=== PATIENT | female | born 1970 | race Caucasian/White ===

== ENCOUNTER 2019-07-30 16:09 | Emergency (ER) | payer SELFPAY ==
[2019-07-30] VITALS (20 sets, daily range): BP systolic 113–135; BP diastolic 64–90; PULSE 62–97; RESP 14–22; TEMP 36.7; O2SAT 93–100; BMI 35.4
--- NOTE | 2019-07-30 16:05 | ED_ITS ---
Entered by Shelby Siegel, acting as scribe for Toni Vann DO HPI - SOB/Dyspnea General: Chief Complaint: Shortness of Breath/Dyspnea Stated Complaint: choking on grape Time Seen by Provider: 07/30/19 16:05 Source: patient and EMS Mode of arrival: EMS Limitations: no limitations History of Present Illness: HPI Narrative: 48 yo Female presents to ED with c omplaint of choking on a grape. Pt was eating grapes and breathed in, the grape became lodging in her throat. Per EMS, they tried to get a blade in to get past the grape but were unable. During transfer process, patient coughed up and then swallowed the grape. Cancelled transfer process. MD elicited complaint: shortness of breath Onset (ago): minute(s) (Just prior to arrival) Context: choking/aspiration (grape in airway) Timing: constant Severity: severe Exacerbating factors: nothing Relieving factors: nothing Associated symptoms: Reports nausea and vomiting; Deny abdominal pain, chest congestion, chest pain, cough, extremity pain, fever(s), palpitations, polydipsia or polyuria Related Data: Home oxygen amount: none Review of Systems General: Reports: 10 or more systems reviewed and unremarkable except in HPI and below Const: Denies: fever, chills or body aches Eyes: Denies: change in vision, blurry vision or blind spots ENMT: Reports: other (esophageal foreign body); Denies: throat pain, painful swallowing, hoarseness or mouth pain Card: Denies: chest pain, palpitations, irregular heart rhythm, edema or swell ing of feet/ankles Resp: Reports: shortness of breath; Denies: productive cough, non-productive cough or chest congestion GI: Reports: nausea and vomiting; Denies: abdominal pain : Denies: flank pain, difficulty urinating, painful urination, urinary frequency or urinary urgency Musc: Denies: neck pain, back pain, extremity pain, extremity swelling, joint pain or joint swelling Skin/Breast: Denies: rash, itching or redness Neuro: Denies: headache, numbness in extremities or weakness in extremities Endo: Denies: excessive urination, excessive thirst or tired all the time Jignesh/Lymph: Denies: easy bruising or easy bleeding PFSH ED PFSH: Statuses (acute, chronic, etc) shown below reflect problem list status as previously entered and may not be historically accurate Medical History (Updated 07/30/19 @ 18:00 by Toni Vann DO) Chronic back pain (Acute) Hepatitis (Acute) Sciatica (Acute) Substance abuse (Acute) UTI (urinary tract infection) (Acute) Surgical History (Updated 07/30/19 @ 16:17 by Shelby Siegel) History of (Acute) History of cholecystectomy (Acute) History of laparoscopy (Acute) History of laparotomy (Acute) Social History Smoking and tobacco status: current every day smoker Physical Exam Const: COMMON NORMALS: no apparent distress, average body habitus, oriented x3, no limitations, healthy appearing, alert and well nourished HENMT: COMMON NORMALS: normocephalic, head/scalp atraumatic, hearing grossly normal bilaterally, external ears normal, EAC's normal, TM's normal bilaterally, external nose normal, nasal mucous membranes and turbinates normal, moist oral mucous membranes, oropharynx normal, dentition normal and gingiva normal HEAD & SCALP: normocephalic and atraumatic NOSE: external nose normal and nasal mucous membranes and turbinates normal EXTERNAL EAR: Yes external ears normal EXTERNAL AUDITORY CANAL: EAC's normal TYMPANIC MEMBRANE: TM's normal bilaterally Eye: COMMON NORMALS: PERRL, EOMs intact bilaterally, conjunctivae normal, no scleral icterus, no papilledema, normal visual osei by confrontation and fundi normal bilaterally CONJUNCTIVA: Yes conjunctivae normal PUPIL: Yes PERRL DIRECT OPHTHALMOSCOPY: Yes no papilledema and Yes fundi normal bilaterally Neck/C-Spine: COMMON NORMALS: full ROM, no lymphadenopathy, supple, no meningeal signs, no JVD, thyroid normal and no carotid bruits THYROID: thyroid normal Chest: COMMONS NORMALS: inspection of chest normal and palpation of chest normal Resp: COMMON NORMALS: normal respiratory effort, no retractions, no use of accessory muscles, clear to auscultation bilaterally and percussion normal AUSCULTATION: clear to auscultation bilaterally PERCUSSION: percussion normal Cardio: COMMON NORMALS: no JVD, regular rate, regular rhythm, S1 normal heart sound, S2 normal heart sound, no gallops, no clicks, no murmurs, no rub and peripheral pulses 2+ throughout RATE: regular rate RHYTHM: regular rhythm HEART SOUNDS: S1 normal and S2 normal PERIPHERAL PULSES: pulses 2+ throughout GI: COMMON NORMALS: normal to inspection, nondistended, normoactive bowel sounds, soft to palpation, non-tender, no hepatosplenomegaly, no masses and no bruits PALPATION: Yes soft and Yes no hepatosplenomegaly : COMMON NORMALS: Yes no CVA tenderness and Yes external appearance normal BLADDER/KIDNEY EXAM: Yes no CVA tenderness Back/Pelvis: COMMON NORMALS: no CVA tenderness, thoracic and lumbar spine normal to inspection, no thoracic nor lumbar tenderness, thoraco-lumbar ROM normal and straight leg raise negative bilaterally Extremity: COMMON NORMALS: normal to inspection, full ROM, normal capillary refill, no joint enlargement, no clubbing, cyanosis or edema, no calf tenderness and no pedal edema Neuro: COMMON NORMALS: oriented x3 SENSORIUM/ORIENTATION: Yes alert MENINGEAL SIGNS: Yes no meningeal signs Skin: COMMON NORMALS: no rashes or lesions noted, no wounds, skin turgor normal, no jaundice, no petechiae and no mottling GENERAL SKIN EXAM: no rashes or lesions noted and turgor normal Course Vital Signs: Vital signs: Vital Signs Temperature 98.0 F 07/30/19 15:59 Pulse Rate 67 07/30/19 17:40 Respiratory Rate 18 07/30/19 17:40 Blood Pressure 117/75 07/30/19 17:40 Pulse Oximetry 95 07/30/19 17:20 MDM - SOB/Dyspnea Lab Data: Labs: Lab Results 07/30/19 07/30/19 Range/Units 16:25 16:25 WBC 7.9 (4.0-10.0) 10^3/ uL RBC 5.03 (4.1-5.3) 10^6/u L Hgb 14.0 (11.5-15.3) g/dL Hct 41.7 (37.0-47.0) % MCV 82.9 (81-99) fL MCH 27.8 L (28.0-34.0) pg MCHC 33.6 (30.0-36.0) g/dL RDW 12.2 (12.1-15.1) % Plt Count 274 (130-400) 10^3/c mm MPV 9.7 (7.4-10.4) fL Neut % (Auto) 44.6 % Lymph % (Auto) 45.1 % [place] % (Auto) 7.4 % Eos % (Auto) 2.3 % Baso % (Auto) 0.3 % Neut # (Auto) 3.5 (1.8-7.7) 10^3/u L Lymph # (Auto) 3.6 (0.8-4.8) 10^3/u L [place] # (Auto) 0.6 (0.2-0.9) 10^3/u L Eos # (Auto) 0.2 (0.0-0.8) 10^3/u L Baso # (Auto) 0.0 (0.0-0.1) 10^3/u L Nucleated RBC % (a uto) 0 % Nucleated RBCs # 0.0 /100WBC Sodium 138 (136-145) mmol/L Potassium 3.5 (3.5-5.1) mmol/L Chloride 97 L (98-107) mmol/L Carbon Dioxide 30 H (22-29) mmol/L Anion Gap 14.5 (5-19) BUN 12 (6-20) mg/dL Creatinine 0.7 (0.5-0.9) mg/dL GFR Calculation 89.3 L (90-130) mL/min Glucose 110 H (74-109) mg/dL Calcium 10.5 H (8.6-10.0) mg/Dl Total Bilirubin 0.3 (0.15-1.2) mg/dL AST 52 H (0-32) U/L ALT 44 H (0-33) U/L Alkaline Phosphata se 110 H (35-105) IU/L Total Protein 9.0 H (6.6-8.7) g/dL Albumin 4.4 (3.5-5.2) g/dL Globulin 4.6 (1.3-4.6) g/dL Imaging Data^: XR Soft Tissue Neck: Radiologist's impression: [address] [address] XRay Report Signed Patient: Franny Schuster #: [id number] : 1970Acct#:[id number] Age/Sex: 48 / FADM Date: 07/30/19 Loc: ERRoom/Bed: Attending Dr: Ordering Provider/Ordering MD: Toni Vann DO Date of Service: 07/30/19 Procedure(s): XR soft tissue neck [id number] Accession Number(s): [id number] Report Number: [id number] PROCEDURE INFORMATION: Exam: XR Soft Tissue Neck Exam date and time: 07/30/2019 4:12 PM Age: 48 years old Clinical indication: Other: Choking; Additional info: Choking on a grape TECHNIQUE: Imaging protocol: XR of the soft tissues of the neck. COMPARISON: No relevant prior studies available. FINDINGS: Airway: On lateral view, there is non specific dilation of the upper esophagus and airway. No radiopaque foreign body identified. Soft tissues: Prevertebral soft tissues are within normal limits. Bones/joints: Unremarkable for technique. XR/XR soft tissue neck [id number] IMPRESSION: 1. No radiopaque foreign body identified. Dictated By:Adam Zambrano MD Signed By:Adam Zambrano MDSigned Date/Time:07/30/191637 DD/ 1637 CT Chest: Radiologist's impression: [address] [address] [address] Scan Report Signed Patient: Franny Schuster #: [id number] : 1970Acct#:[id number] Age/Sex: 48 / FADM Date: 07/30/19 Loc: ERRoom/Bed: Attending Dr: Ordering Provider/Ordering MD: Toni Vann DO Date of Service: 07/30/19 Procedure(s): CT chest w con* [id number] Accession Number(s): [id number] Report Number: [id number] PROCEDURE INFORMATION: Exam: CT Chest With Contrast Exam date and time: 07/30/2019 4:17 PM Age: 48 years old Clinical indication: Injury or trauma; Injury history: PT choked on grape; Initial encounter; Asphyxiation (suffocation); Additional info: Aspiration TECHNIQUE: Imaging protocol: Computed tomography of the chest with intravenous contrast. Total DLP: 782.94 mGy-cm Radiation optimization: All CT scans at this facility use at least one of these dose optimization techniques: automated exposure control; mA and/or kV adjustment per patient size (includes targeted exams where dose is matched to clinical indication); or iterative reconstruction. Contrast material: OMNIPAQUE 300; Contrast volume: 50 ml; Contrast route: IV; COMPARISON: CR Chest 1 [place] [id number] 09/08/2012 10:31 PM FINDINGS: Lungs: Central airways are clear. No evidence of radiopaque foreign body or endobronchial lesion. Pleural space: No pneumothorax. No pleural effusion. Heart: No cardiomegaly. No pericardial effusion. Mediastinum: There is a small hiatal hernia. Pulmonary arteries: The main pulmonary artery measures up to 3.4 cm on this nongated study. Aorta: No aortic aneurysm. Lymph nodes: No enlarged lymph nodes. Gallbladder and bile ducts: The gallbladder surgically absent. Bones/joints: There are mild multilevel degenerative changes of the spine. There are no acute osseous findings. Soft tissues: Unremarkable. CT/CT chest w con* [id number] IMPRESSION: 1. The central airways are clear. There is no evidence of a radiopaque foreign body or endobronchial lesion. 2. The main pulmonary artery measures up to 3.4 cm which can be associated with pulmonary arterial hypertension. Otherwise, no acute intrathoracic process identified. Radiation Dose CTDIVOL = (mGy): DLP = 782.94 (mGy-cm) Dictated By:Adam Zambrano MD Signed By:Adam Zambrano MDSigned Date/Time:07/30/191730 DD/ 173 CT Neck: Radiologist's impression: [address] [address] [address] Scan Report Signed Patient: Franny Schuster #: [id number] : 1970Acct#:[id number] Age/Sex: 48 / FADM Date: 07/30/19 Loc: ERRoom/Bed: Attending Dr: Ordering Provider/Ordering MD: Toni Vann DO Date of Service: 07/30/19 Procedure(s): CT neck w con* [id number] Accession Number(s): [id number] Report Number: [id number] PROCEDURE INFORMATION: Exam: CT Neck With Contrast Exam date and time: 07/30/2019 4:17 PM Age: 48 years old Clinical indication: Injury or trauma; Injury history: PT choked on grape; Initial encounter; Asphyxiation (suffocation); Additional info: Aspiration TECHNIQUE: Imaging protocol: Computed tomography images of the neck with intravenous contrast. Total DLP: 832.7 mGy-cm Radiation optimization: All CT scans at this facility use at least one of these dose optimization techniques: automated exposure control; mA and/or kV adjustment per patient size (includes targeted exams where dose is matched to clinical indication); or iterative reconstruction. Contrast material: OMNIPAQUE 300; Contrast volume: 50 ml; Contrast route: IV; COMPARISON: CR XR soft tissue neck [id number] 07/30/2019 3:55 PM FINDINGS: Nasopharynx: Unremarkable. Oropharynx: A few small nonspecific tonsillar calcifications are noted. No significant tonsillar enlargement. Hypopharynx: Unremarkable Larynx: Normal epiglottis. Retropharyngeal space: Unremarkable. Submandibular/Parotid glands: Glands are normal in size. Thyroid: There are a few subcentimeter hypodensities within the thyroid gland. Lymph nodes: No lymphadenopathy. Trachea: The visualized trachea is patent and without evidence of filling defect. Esophagus: There is no evidence of a radiopaque foreign body within the visualized esophagus. Lungs: The visualized lung apices are grossly clear. Bones/joints: There are mild multilevel degenerative changes of the spine, greatest at the C6-C7 level. There are no acute osseous findings. Soft tissues: No significant soft tissue swelling. CT/CT neck w con* [id number] IMPRESSION: 1. No radiopaque foreign body identified. The visualized trachea is patent and without evidence of filling defect. 2. Few subcentimeter hypodensities within the thyroid. No follow-up is recommended. COMMENT: In patients aged 35 years and older with an incidental thyroid nodule equal to or greater than 1.[address], MRI or extrathyroidal US, further evaluation with dedicated thyroid US is recommended for patients with normal life expectancy and without comorbidities. For smaller nodules without suspicious features, no further evaluation or follow up is recommended. Radiation Dose CTDIVOL = (mGy): DLP = 832.7 (mGy-cm) Dictated By:Adam Zambrano MD Signed By:Adam Zambrano MDSigned Date/Time:07/30/191736 DD/ 35 Discharge Plan Discharge Patient Disposition: Home, Self-Care Clinical Impression: Choking episode Condition: Stable Discharge Orders: Discharge Order (Routine); Ordered 07/30/19 Ordered By: Toni Vann Referrals: Angel La MD [Primary Care Provider] - Discharge Diet: Usual diet Discharge Activity: Resume usual activity Interventions: ED Discharge Assessment Last Done: 07/30/19 16:10 Coding Level of Care Code ED Narcotics Detective for Chg Fwd Exam Problem Focused The documentation recorded by the Christal posey Carmen, accurately reflects the service I personally performed and the decisions made by Soo ga Donald P, Jul 30, 2019 16:09
--- NOTE | 2019-07-30 16:08 | XRR_ITS ---
PROCEDURE INFORMATION: Exam: XR Soft Tissue Neck Exam date and time: 07/30/2019 4:12 PM Age: 48 years old Clinical indication: Other: Choking; Additional info: Choking on a grape TECHNIQUE: Imaging protocol: XR of the soft tissues of the neck. COMPARISON: No relevant prior studies available. FINDINGS: Airway: On lateral view, there is non specific dilation of the upper esophagus and airway. No radiopaque foreign body identified. Soft tissues: Prevertebral soft tissues are within normal limits. Bones/joints: Unremarkable for technique. XR/XR soft tissue neck [id number] IMPRESSION: 1. No radiopaque foreign body identified.
[2019-07-30] MEDS: LORazepam 2 mg/mL INJ 1 mL 0.5 MG IVP (16:11)
--- NOTE | 2019-07-30 16:15 | CTR_ITS ---
PROCEDURE INFORMATION: Exam: CT Neck With Contrast Exam date and time: 07/30/2019 4:17 PM Age: 48 years old Clinical indication: Injury or trauma; Injury history: PT choked on grape; Initial encounter; Asphyxiation (suffocation); Additional info: Aspiration TECHNIQUE: Imaging protocol: Computed tomography images of the neck with intravenous contrast. Total DLP: 832.7 mGy-cm Radiation optimization: All CT scans at this facility use at least one of these dose optimization techniques: automated exposure control; mA and/or kV adjustment per patient size (includes targeted exams where dose is matched to clinical indication); or iterative reconstruction. Contrast material: OMNIPAQUE 300; Contrast volume: 50 ml; Contrast route: IV; COMPARISON: CR XR soft tissue neck [id number] 07/30/2019 3:55 PM FINDINGS: Nasopharynx: Unremarkable. Oropharynx: A few small nonspecific tonsillar calcifications are noted. No significant tonsillar enlargement. Hypopharynx: Unremarkable Larynx: Normal epiglottis. Retropharyngeal space: Unremarkable. Submandibular/Parotid glands: Glands are normal in size. Thyroid: There are a few subcentimeter hypodensities within the thyroid gland. Lymph nodes: No lymphadenopathy. Trachea: The visualized trachea is patent and without evidence of filling defect. Esophagus: There is no evidence of a radiopaque foreign body within the visualized esophagus. Lungs: The visualized lung apices are grossly clear. Bones/joints: There are mild multilevel degenerative changes of the spine, greatest at the C6-C7 level. There are no acute osseous findings. Soft tissues: No significant soft tissue swelling. CT/CT neck w con* [id number] IMPRESSION: 1. No radiopaque foreign body identified. The visualized trachea is patent and without evidence of filling defect. 2. Few subcentimeter hypodensities within the thyroid. No follow-up is recommended. COMMENT: In patients aged 35 years and older with an incidental thyroid nodule equal to or greater than 1.[address], MRI or extrathyroidal US, further evaluation with dedicated thyroid US is recommended for patients with normal life expectancy and without comorbidities. For smaller nodules without suspicious features, no further evaluation or follow up is recommended. Radiation Dose CTDIVOL = (mGy): DLP = 832.7 (mGy-cm)
--- NOTE | 2019-07-30 16:15 | CTR_ITS ---
PROCEDURE INFORMATION: Exam: CT Chest With Contrast Exam date and time: 07/30/2019 4:17 PM Age: 48 years old Clinical indication: Injury or trauma; Injury history: PT choked on grape; Initial encounter; Asphyxiation (suffocation); Additional info: Aspiration TECHNIQUE: Imaging protocol: Computed tomography of the chest with intravenous contrast. Total DLP: 782.94 mGy-cm Radiation optimization: All CT scans at this facility use at least one of these dose optimization techniques: automated exposure control; mA and/or kV adjustment per patient size (includes targeted exams where dose is matched to clinical indication); or iterative reconstruction. Contrast material: OMNIPAQUE 300; Contrast volume: 50 ml; Contrast route: IV; COMPARISON: CR Chest 1 [place] [id number] 09/08/2012 10:31 PM FINDINGS: Lungs: Central airways are clear. No evidence of radiopaque foreign body or endobronchial lesion. Pleural space: No pneumothorax. No pleural effusion. Heart: No cardiomegaly. No pericardial effusion. Mediastinum: There is a small hiatal hernia. Pulmonary arteries: The main pulmonary artery measures up to 3.4 cm on this nongated study. Aorta: No aortic aneurysm. Lymph nodes: No enlarged lymph nodes. Gallbladder and bile ducts: The gallbladder surgically absent. Bones/joints: There are mild multilevel degenerative changes of the spine. There are no acute osseous findings. Soft tissues: Unremarkable. CT/CT chest w con* [id number] IMPRESSION: 1. The central airways are clear. There is no evidence of a radiopaque foreign body or endobronchial lesion. 2. The main pulmonary artery measures up to 3.4 cm which can be associated with pulmonary arterial hypertension. Otherwise, no acute intrathoracic process identified. Radiation Dose CTDIVOL = (mGy): DLP = 782.94 (mGy-cm)
--- NOTE | 2019-07-30 16:21 | PC.NURSE ---
Pt coughed up grape at bedside. [facility] notified. Lab at bedside to draw blood
[2019-07-30] MEDS: iohexol 300 mg/mL 100 mL Btl IV (16:35)
--- NOTE | 2019-07-30 16:40 | PC.NURSE ---
Pt to CT
[2019-07-30 16:43] LABS: Basophils % 0.3 %; Eosinophils # 0.2 10^3/uL (0.0-0.8); Eosinophils % 2.3 %; Hematocrit 41.7 % (37.0-47.0); Lymphocytes # 3.6 10^3/uL (0.8-4.8); Lymphocytes % 45.1 %; Mean Corpuscular HGB Conc 33.6 g/dL (30.0-36.0); Mean Corpuscular Hemoglobin 27.8 pg (28.0-34.0); Mean Corpuscular Volume 82.9 fL (81-99); Mean Platelet Volume 9.7 fL (7.4-10.4); Monocytes # 0.6 10^3/uL (0.2-0.9); Monocytes % 7.4 %; Neutrophils # 3.5 10^3/uL (1.8-7.7); Neutrophils % 44.6 %; Nucleated Red Blood Cells % 0 %; Platelet Count 274 10^3/cmm (130-400); Red Blood Count 5.03 10^6/uL (4.1-5.3); Red Cell Distribution Width 12.2 % (12.1-15.1); White Blood Count 7.9 10^3/uL (4.0-10.0)
--- NOTE | 2019-07-30 16:58 | PC.NURSE ---
Pt returned from CT
[2019-07-30 17:05] LABS: Alanine Aminotransferase 44 U/L (0-33); Albumin Level 4.4 g/dL (3.5-5.2); Alkaline Phosphatase 110 IU/L (35-105); Anion Gap 14.5 (5-19); Aspartate Amino Transferase 52 U/L (0-32); Blood Urea Nitrogen 12 mg/dL (6-20); Calcium 10.5 mg/Dl (8.6-10.0); Carbon Dioxide 30 mmol/L (22-29); Chloride 97 mmol/L (98-107); Globulin 4.6 g/dL (1.3-4.6); Glomerular Filtration Rate 89.3 mL/min (90-130); Glucose 110 mg/dL (74-109); Potassium 3.5 mmol/L (3.5-5.1); Sodium 138 mmol/L (136-145); Total Bilirubin 0.3 mg/dL (0.15-1.2)
== END 2019-07-30 18:12 | disposition home or self-care (01) ==
PROVIDERS: Emergency Provider Family Medicine; PCP Family Medicine
DX: R09.89 Other specified symptoms and signs involving the circulatory and respiratory systems (principal); F17.210 Nicotine dependence, cigarettes, uncomplicated
CPT/HCPCS: 36415; 70360; 70491; 71260; 80053; 85025; 96374; 99282; J2060; Q9967

== ENCOUNTER 2020-05-03 19:08 | Emergency (ER) | payer SELFPAY ==
[2020-05-03 19:22] VITALS: BP 141/83; PULSE 83; RESP 14; TEMP 36.6; O2SAT 100; BMI 32.5
--- NOTE | 2020-05-03 20:15 | CTR_ITS ---
PROCEDURE INFORMATION: Exam: CT Abdomen And Pelvis With Contrast Exam date and time: 05/03/2020 8:25 PM Age: 49 years old Clinical indication: Abdominal pain; Acute; Prior surgery; Surgery date: 6+ months; Surgery type: Hyst gb pelvic FX TECHNIQUE: Imaging protocol: Computed tomography of the abdomen and pelvis with intravenous contrast. Radiation optimization: All CT scans at this facility use at least one of these dose optimization techniques: automated exposure control; mA and/or kV adjustment per patient size (includes targeted exams where dose is matched to clinical indication); or iterative reconstruction. Contrast material: OMNI 300; Contrast volume: 95 ml; Contrast route: INTRAVENOUS (IV); COMPARISON: CT abdomen pelvis wo con [id number] 11/28/2016 9:26 AM RADIATION DOSE METRICS: Total DLP (mGy-cm): 1152.72 FINDINGS: Liver: Normal. No mass. Gallbladder and bile ducts: Cholecystectomy. Pancreas: Normal. No ductal dilation. Spleen: Normal. No splenomegaly. Adrenals: Normal. No mass. Kidneys and ureters: Normal. No hydronephrosis. Stomach and bowel: Constipation. Appendix: No evidence of appendicitis. Intraperitoneal space: Unremarkable. No free air. No significant fluid collection. Vasculature: Unremarkable. No abdominal aortic aneurysm. Lymph nodes: Unremarkable. No enlarged lymph nodes. Urinary bladder: Unremarkable as visualized. Reproductive: Unremarkable as visualized. Bones/joints: Left hip and pelvis surgical hardware. Soft tissues: Unremarkable. CT/CT abdomen pelvis w con* [id number] IMPRESSION: 1. Negative for acute inflammatory process in the abdomen or pelvis 2. Cholecystectomy. 3. Left hip and pelvis surgical hardware. 4. Constipation. Radiation Dose CTDIVOL = (mGy): DLP = 1152.72 (mGy-cm)
--- NOTE | 2020-05-03 20:17 | W.ED.ABDPA2 ---
HPI - Abdominal Pain General: Chief Complaint: Abdominal Pain Stated Complaint: CRAMPS, BLEEDING/HYSTERECTOMY 3 YRS AGO Time Seen by Provider: 05/03/20 20:05 Source: patient Mode of arrival: other Limitations: no limitations History of Present Illness: HPI narrative: 49-year-old female states she been having lower abdominal cramping along with some very slight bleeding that started today. She has had a total hysterectomy in the past. States her bleeding is very minimal and her cramping is a 3 out of 10. She denies any vomiting or diarrhea. Denies any fever. Denies any worsening or improving factors. Associated Symptoms: Denies chills and fever(s) Review of Systems Const: Denies: fever(s), chills, body aches or change in appetite Eyes: Denies: blurry vision or eye discomfort ENMT: Denies: throat pain or dental pain Card: Denies: chest pain Resp: Denies: dyspnea GI: Reports: abdominal pain : Reports: vaginal bleeding Musc: Denies: neck pain or back pain Skin/Breast: Denies: rash Neuro: Denies: headache(s) Psych: Denies: depression Jignesh/Lymph: Denies: easy bruising All/Imm: Denies: urticaria PFSH ED PFSH: Medical History Chronic back pain Hepatitis Sciatica Substance abuse UTI (urinary tract infection) Surgical History History of History of cholecystectomy History of laparoscopy History of laparotomy Social History Smoking and tobacco status: current every day smoker Physical Exam Const: COMMON NORMALS: no acute distress, patient oriented x3 and healthy appearing HENMT: COMMON NORMALS: normocephalic and atraumatic HEAD & SCALP: normocephalic and atraumatic Eye: COMMON NORMALS: Equal, round and reactive pupils present and EOMs intact bilaterally PUPIL: Yes Equal, round and reactive pupils present Neck/C-Spine: COMMON NORMALS: full ROM and supple Chest: COMMONS NORMALS: normal inspection of the chest and normal palpation of entire chest wall Resp: COMMON NORMALS: normal respiratory effort, No retractions, No use of accessory muscles and clear to auscultation bilaterally AUSCULTATION: clear to auscultation bilaterally Cardio: COMMON NORMALS: regular rate, regular rhythm and No murmurs present (Cardio) RATE: regular rate RHYTHM: regular rhythm GI: COMMON NORMALS: Normal to inspection, nondistended, normoactive bowel sounds present, Soft to palpation, non-tender and no masses PALPATION: Yes Soft to palpation Extremity: COMMON NORMALS: normal to inspection and full ROM Neuro: COMMON NORMALS: patient oriented x3, moves all extremities and no focal motor deficits Psych: COMMON NORMALS: mental status grossly normal, Normal thought process present and cooperative THOUGHT PROCESS: Normal thought process present Skin: COMMON NORMALS: no rashes or lesions noted and no wounds GENERAL SKIN EXAM: no rashes or lesions noted Course Vital Signs: Vital signs: Vital Signs Temperature 97.8 F 05/03/20 19:22 Pulse Rate 67 05/03/20 21:00 Respiratory Rate 16 05/03/20 21:00 Blood Pressure 132/73 05/03/20 21:00 Pulse Oximetry 99 05/03/20 21:00 MDM - Abdominal Pain MDM Narrative: Medical decision making narrative: Janey presents here with lower abdominal pain with some vaginal spotting. She does have a urinary tract infection and her CT scan here is negative. She is stable for discharge is to follow-up PCP and return if worsening. She understands agrees to plan. Lab Data: Labs: Lab Results 05/03/20 05/03/20 05/03/20 Range/Units 20:27 20:27 20:45 WBC 9.6 (4.0-10.0) 10^3/ uL RBC 5.46 H (4.1-5.3) 10^6/u L Hgb 15.1 (11.5-15.3) g/dL Hct 45.3 (37.0-47.0) % MCV 83.0 (81-99) fL MCH 27.7 L (28.0-34.0) pg MCHC 33.3 (30.0-36.0) g/dL RDW 12.6 (12.1-15.1) % Plt Count 335 (130-400) 10^3/c mm MPV 10.0 (7.4-10.4) fL Neut % (Auto) 43.6 % Lymph % (Auto) 46.0 % [place] % (Auto) 8.9 % Eos % (Auto) 0.9 % Baso % (Auto) 0.4 % Neut # (Auto) 4.18 (1.8-7.7) 10^3/u L Lymph # (Auto) 4.4 (0.8-4.8) 10^3/u L [place] # (Auto) 0.9 (0.2-0.9) 10^3/u L Eos # (Auto) 0.1 (0.0-0.8) 10^3/u L Baso # (Auto) 0.0 (0.0-0.1) 10^3/u L Nucleated RBC % (a uto) 0 % Nucleated RBCs # 0.0 /100WBC Sodium 135 L (136-145) mmol/L Potassium 4.6 (3.5-5.1) mmol/L Chloride 100 (98-107) mmol/L Carbon Dioxide 23 (22-29) mmol/L Anion Gap 16.6 (5-19) BUN 17 (6-20) mg/dL Creatinine 0.7 (0.5-0.9) mg/dL GFR Calculation 88.9 L (90-130) mL/min Glucose 118 H (65-115) mg/dL Calculated Osmolal ity 283 L (285-295) mOsm/k g Calcium 10.2 (8.5-10.5) mg/dL Total Bilirubin 0.2 (0.15-1.2) mg/dL AST 46 H (0-32) U/L ALT 51 H (0-33) U/L Alkaline Phosphata se 110 H (35-105) IU/L Total Protein 8.9 H (6.6-8.7) g/dL Albumin 4.2 (3.5-5.2) g/dL Globulin 4.7 H (1.3-4.6) g/dL Lipase 27 (13-60) U/L Urine Color Yellow (Yellow) Urine Appearance Cloudy (CLEAR) Urine pH 7.0 (5-7) Ur Specific Gravit y 1.015 (1.005-1.030) Urine Protein Trace (Negative) Urine Glucose (UA) Norm (Normal) Urine Ketones Negative (Negative) Urine Blood 3+ H (Negative) Urine Nitrate Negative (Negative) Urine Bilirubin Neg (Negative) Urine Urobilinogen Norm (Negative) mg/dL Ur Leukocyte Priscilla ase 2+ H (Negative) Urine RBC 15-25 H (0-2) /hpf Urine WBC Too numerous to c nt H (0-5) /hpf Ur Squamous Epith Cells 5-10 H (0-5) /hpf Amorphous Sediment Not Reportable Urine Bacteria 2+ H (NONE) /hpf Imaging Data ^: CT Abd/Pel: Radiologist's impression: [address] [address] [address] Scan Report Signed Patient: Janey Schuster Unit #: [id number] : 1970 Age/Sex: 49 / F ADM Date: 05/03/20 Loc: ER Room/Bed: Attending Dr: Ordering Provider/Ordering MD: Dallin Hernandez MD Date of Service: 05/03/20 Procedure(s): CT abdomen pelvis w con* [id number] Accession Number(s): [id number] Report Number: [id number] PROCEDURE INFORMATION: Exam: CT Abdomen And Pelvis With Contrast Exam date and time: 05/03/2020 8:25 PM Age: 49 years old Clinical indication: Abdominal pain; Acute; Prior surgery; Surgery date: 6+ months; Surgery type: Hyst gb pelvic FX TECHNIQUE: Imaging protocol: Computed tomography of the abdomen and pelvis with intravenous contrast. Radiation optimization: All CT scans at this facility use at least one of these dose optimization techniques: automated exposure control; mA and/or kV adjustment per patient size (includes targeted exams where dose is matched to clinical indication); or iterative reconstruction. Contrast material: OMNI 300; Contrast volume: 95 ml; Contrast route: INTRAVENOUS (IV); COMPARISON: CT abdomen pelvis wo con [id number] 11/28/2016 9:26 AM RADIATION DOSE METRICS: Total DLP (mGy-cm): 1152.72 FINDINGS: Liver: Normal. No mass. Gallbladder and bile ducts: Cholecystectomy. Pancreas: Normal. No ductal dilation. Spleen: Normal. No splenomegaly. Adrenals: Normal. No mass. Kidneys and ureters: Normal. No hydronephrosis. Stomach and bowel: Constipation. Appendix: No evidence of appendicitis. Intraperitoneal space: Unremarkable. No free air. No significant fluid collection. Vasculature: Unremarkable. No abdominal aortic aneurysm. Lymph nodes: Unremarkable. No enlarged lymph nodes. Urinary bladder: Unremarkable as visualized. Reproductive: Unremarkable as visualized. Bones/joints: Left hip and pelvis surgical hardware. Soft tissues: Unremarkable. CT/CT abdomen pelvis w con* [id number] IMPRESSION: 1. Negative for acute inflammatory process in the abdomen or pelvis 2. Cholecystectomy. 3. Left hip and pelvis surgical hardware. 4. Constipation. Discharge Plan Discharge Patient Disposition: Home Clinical Impression: Acute cystitis Qualifiers: Hematuria presence: without hematuria Qualified Code(s): N30.00 - Acute cystitis without hematuria Condition: Stable Prescriptions: New Keflex 500 mg capsule 500 mg PO Q6H 7 Days Qty: 28 RF: 0 Discharge Orders: Discharge Order (Routine); Ordered 05/03/20 Ordered By: Dallin Hernandez Referrals: Angel La MD [Primary Care Provider] - Discharge Diet: Advance as tolerated Discharge Activity: Resume usual activity Patient Instructions: Urinary Tract Infection in Women (ED) Coding Level of Care Code ED Natural Sciences Professor for Chg Fwd Exam Comprehensive
[2020-05-03 20:33] LABS: Basophils % 0.4 %; Eosinophils # 0.1 10^3/uL (0.0-0.8); Eosinophils % 0.9 %; Hematocrit 45.3 % (37.0-47.0); Hemoglobin 15.1 g/dL (11.5-15.3); Lymphocytes # 4.4 10^3/uL (0.8-4.8); Mean Corpuscular HGB Conc 33.3 g/dL (30.0-36.0); Mean Corpuscular Hemoglobin 27.7 pg (28.0-34.0); Monocytes # 0.9 10^3/uL (0.2-0.9); Monocytes % 8.9 %; Neutrophils # 4.18 10^3/uL (1.8-7.7); Neutrophils % 43.6 %; Nucleated Red Blood Cells % 0 %; Platelet Count 335 10^3/cmm (130-400); Red Blood Count 5.46 10^6/uL (4.1-5.3); Red Cell Distribution Width 12.6 % (12.1-15.1); White Blood Count 9.6 10^3/uL (4.0-10.0)
[2020-05-03 20:49] LABS: Alanine Aminotransferase 51 U/L (0-33); Albumin Level 4.2 g/dL (3.5-5.2); Alkaline Phosphatase 110 IU/L (35-105); Aspartate Amino Transferase 46 U/L (0-32); Blood Urea Nitrogen 17 mg/dL (6-20); Calcium 10.2 mg/dL (8.5-10.5); Carbon Dioxide 23 mmol/L (22-29); Chloride 100 mmol/L (98-107); Globulin 4.7 g/dL (1.3-4.6); Glomerular Filtration Rate 88.9 mL/min (90-130); Glucose 118 mg/dL (65-115); Lipase 27 U/L (13-60); Osmolality Calculated 283 mOsm/kg (285-295); Sodium 135 mmol/L (136-145); Total Bilirubin 0.2 mg/dL (0.15-1.2); Total Protein 8.9 g/dL (6.6-8.7)
[2020-05-03 20:51] LABS: Anion Gap 16.6 (5-19); Potassium 4.6 mmol/L (3.5-5.1)
[2020-05-03 21:00] VITALS: BP 132/73; PULSE 67; RESP 16; O2SAT 99
[2020-05-03] MEDS: iohexol 300 mg/mL 100 mL Btl IV (21:10)
[2020-05-03 21:34] LABS: Glucose Urine UA Norm (Normal); Ketones Urine Negative (Negative); Protein Urine Trace (Negative); Specific Gravity, Urine 1.015 (1.005-1.030); Urine Appearance Cloudy (CLEAR); Urine Color Yellow (Yellow)
[2020-05-03 21:35] LABS: Add Urine Culture? Yes; Bacteria Urine 2+ /hpf; Bilirubin Urine Neg (Negative); Blood Urine 3+ (Negative); Leukocyte Esterase Urine 2+ (Negative); Nitrate Urine Negative (Negative); RBC Urine 15-25 /hpf (0-2); Urobilinogen Urine Norm (Negative); WBC Urine TOO NUMEROUS TO CNT /hpf (0-5)
[2020-05-03] MEDS: cefTRIAXone 1,000 MG in sodium chloride 0.9% (plus) 50 ML 100 MG IV (21:46)
[2020-05-03] MEDS: ketorolac 30 mg/mL INJ IVP (21:59)
[2020-05-03 22:01] VITALS: BP 121/78; PULSE 76; RESP 16; O2SAT 99
== END 2020-05-03 22:02 | disposition home or self-care (01) ==
PROVIDERS: Emergency Provider Emergency Medicine; PCP Family Medicine
DX: N30.00 Acute cystitis without hematuria (principal); Z87.440 Personal history of urinary (tract) infections; F17.210 Nicotine dependence, cigarettes, uncomplicated
CPT/HCPCS: 12345; 74177; 80053; 81001; 83690; 85025; 87077; 87086; 87186; 96365; 96375; 99282; 99283; J0696; J1885; Q9967

== ENCOUNTER 2020-08-01 15:42 | Outpatient (CLI) | payer SELFPAY ==
--- NOTE | 2020-08-01 15:54 | XR_ITS ---
WS: [id number] HIP WITH PELVIS LEFT TECHNIQUE: 3 views of the left hip with pelvis CLINICAL INFORMATION: left hip pain COMPARISON: None. FINDINGS: Advanced osteoarthritis left hip with joint space narrowing. Plate and screw fixation along the aceta bulum and left ilium. Intramedullary gricel and screw fixation left femoral neck and shaft. Subchondral cystic changes involving the femoral head. Healed fracture involving the mid femoral shaft. Distal fe moral gricel appears intact. XR/XR hip LT 2-3V wo/w pel* [id number] IMPRESSION: 1. Advanced osteoarthritis left hip with joint space narrowing. 2. Intramedullary gricel and screw fixation left hip extending into the distal fe moral shaft appears intact. Healed fracture mid femoral shaft 3. Plate and screw fixation left acetabulum.
== END 2020-08-01 15:43 | disposition home or self-care (01) ==
LOC: RADWPI 15:47
PROVIDERS: PCP Family Medicine; Visit Provider Family Medicine
DX: M16.12 Unilateral primary osteoarthritis, left hip (principal)
CPT/HCPCS: 73502

== ENCOUNTER → 2021-08-29 00:01 | Outpatient (BNVA) | payer SELFPAY | PROVIDERS: PCP Family Medicine; Visit Provider Orthopaedic Surgery | DX: Z01.812 Encounter for preprocedural laboratory examination (principal); Z20.822 Contact with and (suspected) exposure to COVID-19 | CPT/HCPCS: 87635 ==

== ENCOUNTER 2021-09-02 12:25 | Observation (INO) | payer SELFPAY ==
[2021-08-30 13:37] VITALS: BMI 30.7
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
[2021-09-02] VITALS (27 sets, daily range): BP systolic 97–156; BP diastolic 72–98; PULSE 52–92; RESP 15–22; TEMP 35.7–37.5; O2SAT 90–100; BMI 30.7
[2021-09-02] MEDS: acetaminophen 500 mg Tablet 1000 MG PO ×3 (07:06→19:51)
[2021-09-02] MEDS: gabapentin 300 mg Capsule PO ×2 (07:07→17:41)
[2021-09-02] MEDS: oxyCODONE 20 mg ER (12 HR) Tablet PO (07:08)
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
--- NOTE | 2021-09-02 07:18 | P.ANESUD_ITS ---
Pre-Anesthetic Update Pre-Anesthetic Assessment: Date of Surgery/Procedure: 09/02/21 Preop Mary gnosis: Osteoarthritis Left hip, Painful hardware left femur Proposed Procedure: Operation Date: 09/02/21 07:00 Proposed Procedures p Total Hip Arthroplasty 07405 44712 M16.12(Left) - Jean Rinaldi MD s Hardware Removal Hip(Left) - Jean Rinaldi MD Changes from Pre-Anesthetic Assessment: None Last Intake: Intake Last Liquid Date 09/02/21 Last Liquid Time 01:30 Last Solid Date 09/01/21 Last Solid Time 18:00 Labs Last 48hrs: > 8 hrs Vitals: Temperature 97.2 F L 09/02/21 06:55 Temperature Source Temporal Artery S can 09/02/21 06:55 Pulse Rate 92 09/02/21 06:55 Respiratory Rate 18 09/02/21 07:08 Respiratory Effort 09/02/21 07:08 Respiratory Depth Normal 09/02/21 07:08 Respiratory Patter n 09/02/21 07:08 Blood Pressure 155/77 09/02/21 06:55 Blood Pressure Nalini n 103 09/02/21 06:55 Pulse Oximetry 97 09/02/21 07:08 Oxygen Delivery Me thod 09/02/21 06:57 Exam: Pre-Anes Outpt Exam: alert, oriented x 3, clear to auscultation bilaterally and regular rate & rhythm Cardiac Studies: No Data to Display
--- NOTE | 2021-09-02 08:49 | XR_ITS ---
WS: [id number] HIP LEFT TECHNIQUE: 2 views of the left hip CLINICAL INFORMATION: SURGERY COMPARISON: August 01, 2020 FINDINGS: X-ray obtained for intraoperative purposes. Prior intramedullary gricel and screw fixation LEFT hip with external attachment device. Prior postoperative changes LEFT acetabulum. 4 cm projected over the proximal femur. Localization nee dle over the LEFT greater trochanter. Images obtained for intraoperative purposes. XR/XR hip LT 1V wo/w pel [id number] IMPRESSION: LEFT hip images for intraoperative purposes. Tonnis classification:
--- NOTE | 2021-09-02 09:33 | XR_ITS ---
WS: [id number] Exam: XR hip LT 1V wo/w pel [id number] Date/Time of Exam: 09/02/2021 9:34 AM Reason For Exam: SURGERY AP view the left hip is submitted for evaluation. A long stem hip prosthesis is in place. Postoperati ve changes in the adjacent soft tissues. Pre-existing plate and screws noted along the left acetabulu m. XR/XR hip LT 1V wo/w pel [id number] IMPRESSION: 1. Left hip prosthesis placement as noted above.
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
[2021-09-02] MEDS: midazolam 1 mg/mL INJ 2 mL 2 MG (10:55)
[2021-09-02] MEDS: ondansetron 2 mg/ML SDV 2 mL 4 MG IVP (10:55)
[2021-09-02] MEDS: HYDROmorphone 1 mg/mL INJ 1 mL 0.5 MG IVP ×3 (11:04→11:38)
--- NOTE | 2021-09-02 12:40 | ANE.PACU2 ---
Inpatient post-anesthesia follow up: Airway intact: Yes Vital signs: Temperature 98.2 F Pulse Rate 75 Respiratory Rate 16 Blood Pressure 138/72 Pulse Oximetry 99 Oxygen Delivery Me thod Room Air Oxygen Flow Rate 6 Fraction of Inspir ed Oxygen Hydration adequate: Yes Nausea and vomiting: No Pain level: 3 Mental status: Baseline
[2021-09-02] MEDS: sodium chloride 0.9% 1,000 ML 100 ML IV ×2 (13:28→23:26)
[2021-09-02] MEDS: oxyCODONE 5 mg IR Tab/Cap PO (19:54)
[2021-09-03] VITALS (7 sets, daily range): BP systolic 100–132; BP diastolic 66–75; PULSE 78–87; RESP 16–18; TEMP 36.9–37.6; O2SAT 92–98
[2021-09-03] MEDS: oxyCODONE 5 mg IR Tab/Cap PO ×3 (00:43→08:41)
[2021-09-03] MEDS: acetaminophen 500 mg Tablet 1000 MG PO ×2 (04:47→11:37)
[2021-09-03 04:55] LABS: Hemoglobin 10.4 g/dL (11.5-15.3)
--- NOTE | 2021-09-03 08:23 | P.DS_ITS ---
Discharge Providers Date of Admission: 09/02/21 12:25 Date of Discharge: September 03, 2021 Attending Provider at Admission: Jean Cobos MD Attending Provider at Discharge: Jean Cobos MD Diagnoses at Discharge Discharge Diagnosis (1) Status post left hip replacement: Status: Acute (2) Post-traumatic osteoarthritis of left hip: Status: Resolved (3) Hepatitis: Status: Chronic Permanent problem details: Hep C - never treated Reason for Visit Reason for Visit: Arthritis of left hip Hospital Course Hospital Course The patient tolerated surgery well. They remained hemodynamically stable. They was begun on aspirin and foot pumps for DVT prophylaxis. The patient was mobilized with therapy beginning the day of surgery and by the first postoperative day independent with the walker. The morning after surgery she was found with capsules unfamiliar to our our our pharmacy. Patient stated that her own medications but seem to be prepackaged suggesting illegal narcotic use. As the pain was adequately controlled and they were fully mobile they were discharged home. Physical Exam Narrative: On the day of discharge the hip incision was clean. The incision was free of drainage. They had no particular swelling about the thigh or distal. No distal neurovascular deficits were noted. Urinary Catheter Management: Lloyd: Cath Placed During This Visit: yes Reason for Continuing Indwelling Catheter: Perioperative Use in Selected Surgeries Urinary Catheter Date of Insertion: 09/02/21 Urinary Catheter Time of Insertion: 07:45 Discharge Data Studies Completed and Pending Completed Studies During Hospitalization Category Date Time Status XR hip LT 1V wo/[place] [id number] Routine Exams 09/02/21 08:49 Completed XR hip LT 1V wo/[place] pel [id number] Routine Exams 09/02/21 09:33 Completed Radiology Impressions Hip X-Ray 09/02/21 09:33 IMPRESSION: 1. Left hip prosthesis placement as noted above. Laboratory Results Hgb 10.4 g/dL (11.5-15.3) L 09/03/21 04:15 Vitals Last Vital Signs Temp 98.5 F 09/03/21 08:16 Pulse 78 09/03/21 08:16 Resp 18 09/03/21 08:16 BP 132/75 09/03/21 08:16 Pulse Ox 97 09/03/21 08:16 Discharge Plan Discharge Patient Disposition: Home Condition: Stable Prescriptions: New oxycodone 5 mg Tablet 5 mg PO Q4H PRN (Reason: Moderate Pain) 7 Days Qty: 40 0RF acetaminophen 500 mg Tablet 1,000 mg PO Q8H 14 Days Qty: 84 0RF gabapentin 300 mg Capsule 300 mg PO BID 7 Days Qty: 14 0RF aspirin 325 mg Tablet,Delayed Release (Dr/Ec) 325 mg PO DAILY 30 Days Qty: 30 0RF Discharge Orders: Discharge Order (Routine); Ordered 09/03/21 Ordered By: Jean Cobos Other Ambulatory Orders: DME: Walker (Order) Location: None Selected Ordered By: Jean Cobos Referrals: Jean Cobos MD [Physician] - 09/06/21 8:00 am Discharge Diet: Advance as tolerated Discharge Activity: Limit activity as instructed Patient Instructions: Opioid Safety Activity Restrictions/Additional Instructions: Okay to shower. No soaking incision in tub Apply FirstIce up to 20 min/hr for pain and swelling Take Celebrex twice a day for the next 15 days for pain , discontinue other anti-inflammatories Take Neurontin twice a day for 7 days. Take Tylenol 500mg (up to 2 tabs) 3 times a day for mild pain Take oxycodone for breakthrough pain. Exercises per physical therapy. May weight-bear as tolerated on total hip arthroplasty IF HAVE ANY PROBLEMS OR QUESTIONS CALL [facility]ICK[facility] MACHINE OPERATOR AT AND ASK TO HAVE DR. COBOS PAGED. Discharge Attestations Time Spent in Discharge Care*: other Quality Metrics Clinical Quality Measures [ No reported AMI, CVA or VTE this stay] Coding Level of Care Code Acute Clinical Support Manager for Wanda Quiñonez Diagnoses Status post left hip replacement Z96.642 Post-traumatic osteoarthritis of left hip M16.52 Hepatitis K75.9
[2021-09-03] MEDS: aspirin 325 mg EC Tablet PO (08:41)
[2021-09-03] MEDS: gabapentin 300 mg Capsule PO (08:42)
[2021-09-03] MEDS: sodium chloride 0.9% 1,000 ML 100 ML IV (08:43)
--- NOTE | 2021-09-03 09:16 | PC.NURSE ---
Removed patients mares cath at 0850. Patient tolerated well, catheter intact.
--- NOTE | 2021-09-03 11:56 | PC.NURSE ---
Discharge teaching and education were given to patient, all questions were answered at this time. Vitals stable. IV discontinued. Patients took patients belongings home with him. Medications are being sent to local pharmacy.
== END 2021-09-03 12:44 | disposition home or self-care (01) ==
LOC: MEDSURG 12:27
PROVIDERS: Admitting Provider Orthopaedic Surgery; Visit Provider Orthopaedic Surgery
PROC: (CPT 27130; principal; 2021-09-02 07:00)
PROC: (CPT 20680; 2021-09-02 07:00)
DX: M16.52 Unilateral post-traumatic osteoarthritis, left hip (principal); F17.210 Nicotine dependence, cigarettes, uncomplicated; B19.20 Unspecified viral hepatitis C without hepatic coma
CPT/HCPCS: 27130; 36415; 51702; 73501; 85018; 97116; 97161; 97166; 97530; C1776 ×2; G0378; J0690; J1100; J1170; J1580; J2250; J2370; J2405; J2704; J2710; J3010; J3490; J7030; P9041

== ENCOUNTER → 2021-10-08 13:42 | Outpatient (BNVA) | payer SELFPAY | PROVIDERS: Visit Provider Orthopaedic Surgery | DX: M16.52 Unilateral post-traumatic osteoarthritis, left hip (principal); Z96.642 Presence of left artificial hip joint | CPT/HCPCS: 73502 ==

== ENCOUNTER 2021-10-30 03:18 | Emergency (ER) | payer SELFPAY ==
[2021-10-30 03:25] VITALS: BP 128/86; PULSE 87; RESP 18; TEMP 36.6; O2SAT 100; BMI 32.3
--- NOTE | 2021-10-30 03:28 | XRR_ITS ---
PROCEDURE INFORMATION: Exam: XR Left Tibia and Fibula Exam date and time: 10/30/2021 3:35 AM Age: 50 years old Clinical indication: Cellulitis and swelling, leg or foot; Lower leg; Left; Patient HX: C/O pain with swelling and redness to lle x 3 days. TECHNIQUE: Imaging protocol: XR Left tibia and fibula. Views: 2 views. COMPARISON: US SoftTissue/Extrem Lmt [id number] 07/24/2017 1:53 AM FINDINGS: Bones/joints: No acute fracture or dislocation. No bone destruction or periosteal elevation. Soft tissues: There is soft tissue edema. XR/XR tibia fibula LT 2V [id number] IMPRESSION: 1. No acute fracture or dislocation. 2. No evidence of osteomyelitis. 3. There is soft tissue edema.
--- NOTE | 2021-10-30 03:28 | USR_ITS ---
PROCEDURE INFORMATION: Exam: US Duplex Left Lower Extremity Veins, Limited Exam date and time: 10/30/2021 3:38 AM Age: 50 years old Clinical indication: Pain; Leg, lower; Left; Prior surgery; Surgery date: 1-6 months; Surgery type: Lt hip replacement; Patient HX: PT reports rods removed and hip replaced on lt side. TECHNIQUE: Imaging protocol: Real-time Duplex ultrasound of the Left Lower Extremity with 2-D xiong scale, color Doppler flow and spectral waveform analysis with image documentation. Limited exam focused on the left lower extremity veins. COMPARISON: US SoftTissue/Extrem t [id number] 07/24/2017 1:53 AM FINDINGS: Left deep veins: Unremarkable. The common femoral, femoral, proximal profunda femoral and popliteal veins are patent without thrombus. Normal Doppler waveforms. Normal compressibility and/or augmentation response. Left superficial veins: Unremarkable. Saphenofemoral junction is patent without thrombus. Soft tissues: Unremarkable. US/CV venous duplex [facility] [id number] IMPRESSION: No evidence of deep vein thrombosis.
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
[2021-10-30] MEDS: morphine 4 mg/mL SDV 1 mL IVP (04:19)
[2021-10-30] MEDS: ondansetron 2 mg/ML SDV 2 mL 4 MG IVP (04:20)
[2021-10-30 04:22] LABS: Basophils % 0.7 %; Eosinophils # 0.2 10^3/uL (0.0-0.8); Eosinophils % 3.1 %; Hematocrit 34.5 % (37.0-47.0); Hemoglobin 11.1 g/dL (11.5-15.3); Lymphocytes # 2.6 10^3/uL (0.8-4.8); Lymphocytes % 46.1 %; Mean Corpuscular HGB Conc 32.2 g/dL (30.0-36.0); Mean Corpuscular Hemoglobin 26.4 pg (28.0-34.0); Mean Corpuscular Volume 82.1 fl (81-99); Mean Platelet Volume 9.5 fL (7.4-10.4); Monocytes # 0.5 10^3/uL (0.2-0.9); Monocytes % 9.2 %; Neutrophils # 2.27 10^3/uL (1.8-7.7); Neutrophils % 40.7 %; Nucleated Red Blood Cells % 0 %; Platelet Count 258 10^3/cmm (130-400); Red Cell Distribution Width 13.3 % (12.1-15.1); White Blood Count 5.6 10^3/uL (4.0-10.0)
== END 2021-10-30 04:35 | disposition home or self-care (01) ==
PROVIDERS: Emergency Provider Emergency Medicine
DX: L03.116 Cellulitis of left lower limb (principal); F17.210 Nicotine dependence, cigarettes, uncomplicated; Z98.890 Other specified postprocedural states
CPT/HCPCS: 73590; 85025; 93971; 96374; 96375; 99283; J2270; J2405

== ENCOUNTER 2023-01-28 07:37 | Emergency (ER) | payer SELFPAY ==
[2023-01-28 07:57] VITALS: BP 141/88; PULSE 100; RESP 18; TEMP 36.9; O2SAT 100; BMI 32.3
[2023-01-28 08:00] VITALS: BP 141/88; PULSE 100; RESP 18; O2SAT 100
--- NOTE | 2023-01-28 08:11 | USCV_ITS ---
Janey Schuster Age: 52 Gender: F : 1970 Exam Date: 01/28/2023 09:16 Ordering Phys: Camilo Negron Technologist: CT Exam Location: [facility] [place]_ Indication: swelling, possible abscess PROCEDURES: Venous duplex imaging was performed in only the left upper extremity. The following venous structures were evaluated: internal jugular vein, subclavian vein, axillary vein, and brachial veins. FINDINGS: no dvt or drainable abscess identified CONCLUSIONS No evidence of thrombus of the left upper extremity veins. No abscess. Garry Bell MD (Electronically Signed) Final Date: 28 January 2023 11:43 S
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
[2023-01-28] MEDS: morphine 4 mg/mL SDV 1 mL IVP (08:43)
[2023-01-28] MEDS: ondansetron 2 mg/ML SDV 2 mL 4 MG IVP (08:43)
[2023-01-28] MEDS: ampicillin-sulbactam 3 GM in sodium chloride 0.9% (plus) 50 ML IV (08:44)
[2023-01-28 08:48] LABS: Basophils % 0.3 %; Eosinophils # 0.4 10^3/uL (0.0-0.8); Eosinophils % 3.7 %; Hematocrit 34.8 % (37.0-47.0); Hemoglobin 11.7 g/dL (11.5-15.3); Lymphocytes # 3.5 10^3/uL (0.8-4.8); Lymphocytes % 29.7 %; Mean Corpuscular HGB Conc 33.6 g/dL (30.0-36.0); Mean Corpuscular Volume 80.2 fl (81-99); Mean Platelet Volume 9.4 fL (7.4-10.4); Monocytes % 8.6 %; Neutrophils # 6.71 10^3/uL (1.8-7.7); Neutrophils % 57.3 %; Nucleated Red Blood Cells % 0 %; Platelet Count 298 10^3/cmm (130-400); Red Blood Count 4.34 10^6/uL (4.1-5.3); Red Cell Distribution Width 13.3 % (12.1-15.1); White Blood Count 11.7 10^3/uL (4.0-10.0)
[2023-01-28] MEDS: sodium chloride 0.9% 1,000 ML 999 ML IV (08:59)
[2023-01-28 09:05] LABS: Alanine Aminotransferase 17 U/L (0-33); Albumin Level 3.7 g/dL (3.5-5.2); Alkaline Phosphatase 105 U/L (35-105); Anion Gap 15.3 (5-19); Aspartate Amino Transferase 18 U/L (0-32); Blood Urea Nitrogen 11 mg/dL (6-20); Calcium 8.9 mg/dL (8.5-10.5); Carbon Dioxide 23 mmol/L (22-29); Chloride 96 mmol/L (98-107); Globulin 4.2 g/dL (1.3-4.6); Glomerular Filtration Rate 65.8 mL/min (90-130); Glucose 111 mg/dL (65-115); Osmolality Calculated 272 mOsm/kg (285-295); Potassium 3.3 mmol/L (3.5-5.1); Sodium 131 mmol/L (136-145); Total Bilirubin 0.4 mg/dL (0.15-1.2); Total Protein 7.9 g/dL (6.6-8.7)
[2023-01-28 09:09] LABS: Lactic Sepsis W/Reflex 1.8 mmol/L (0.5-2.2)
[2023-01-28] MEDS: potassium chloride ER 20 mEq Tablet PO (10:31)
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
== END 2023-01-28 10:52 | disposition home or self-care (01) ==
PROVIDERS: Emergency Provider Physician Assistant
DX: L03.114 Cellulitis of left upper limb (principal); Z86.19 Personal history of other infectious and parasitic diseases; F17.210 Nicotine dependence, cigarettes, uncomplicated
CPT/HCPCS: 80053; 83605; 85025; 87040; 87070; 87075; 87077; 87186; 87205; 93971; 96365; 96375; 99284; J0295; J2270; J2405; J7030

== ENCOUNTER 2024-11-09 09:28 | Emergency (ER) | payer BC, MEDICAID, SELFPAY ==
[2024-11-09 09:31] VITALS: BP 168/92; PULSE 82; TEMP 36.8; O2SAT 20; BMI 33.2
--- NOTE | 2024-11-09 09:36 | ECG_ITS ---
[facility]24[facility]09 Pat Name: Janey Schuster Department: Room: Gender: Female Erosion Control Specialist: : 1970 Requested By: Lobito Spencer Order Number: [id number] Christine MD: All Harris M.D. Measurements Intervals [place] Rate: 85 P: 63 WV: 146 QRS: 61 QRSD: 99 T: 61 QT: 379 QTc: 451 Interpretive Statements SINUS RHYTHM LOW QRS VOLTAGE IN PRECORDIAL LEADS [QRS DEFLECTION < 1.0 mV IN CHEST LEADS] INTERPRETATION BASED ON A DEFAULT AGE OF 40 YEARS No previous ECG available for comparison Electronically Signed On 11-14-2024 10:16:18 CDT by All Harris M.D. [email or web address]
[2024-11-09 09:45] VITALS: BP 130/87; PULSE 77; O2SAT 98
--- NOTE | 2024-11-09 09:45 | XR_ITS ---
WS: [id number] Portable AP upright chest, 11/09/2024 Clinical Data: chest pain Comparison: Portable chest, 09/08/2012 Findings: There is patchy opacity in the left lower lobe which could represent acute pneumonia. No nodules, masses or effusions are seen. The heart is normal. The pulmonary vascularity is not increased. No pneumothorax is seen. Monitor leads are on the chest wall. XR/XR chest 1V portable [id number] Impression: Minimal patchy opacity in left lower lobe which could represent acute pneumonia and/or atelectasis.
[2024-11-09] MEDS: aspirin 81 mg Chew Tablet 324 MG PO (09:56)
[2024-11-09 09:59] LABS: Basophils % 0.2 %; Eosinophils # 0.1 10^3/uL (0.0-0.8); Eosinophils % 0.8 %; Hematocrit 41.9 % (36-47); Lymphocytes # 3.9 10^3/uL (0.8-4.8); Lymphocytes % 46.8 %; Mean Corpuscular HGB Conc 32.9 g/dL (30-55); Mean Corpuscular Hemoglobin 26.9 pg (27-33); Mean Corpuscular Volume 81.7 fl (85-98); Mean Platelet Volume 9.9 fL (7.4-10.4); Monocytes # 0.7 10^3/uL (0.2-0.9); Monocytes % 8.3 %; Neutrophils # 3.63 10^3/uL (1.8-7.7); Neutrophils % 43.7 %; Nucleated Red Blood Cells % 0 %; Platelet Count 260 10^3/cmm (157-399); Red Blood Count 5.13 10^6/uL (3.85-5.65); Red Cell Distribution Width 13.4 % (12.1-15.1); White Blood Count 8.32 10^3/uL (3.29-11.43)
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
[2024-11-09 10:14] LABS: Alanine Aminotransferase 19 U/L (0-33); Alkaline Phosphatase 94 U/L (35-105); Blood Urea Nitrogen 13 mg/dL (6-20); Calcium 9.3 mg/dL (8.5-10.5); Carbon Dioxide 23 mmol/L (22-29); Chloride 100 mmol/L (98-107); Creatinine Clr Calc Pharmacy 107.0456; Globulin 4.3 g/dL (1.3-4.6); Glomerular Filtration Rate 87.5 mL/min (90-130); Glucose 111 mg/dL (65-115); Osmolality Calculated 285 mOsm/kg (285-295); Sodium 137 mmol/L (136-145); Total Bilirubin 0.6 mg/dL (0.15-1.2); Total Protein 8.3 g/dL (6.6-8.7); Troponin(5th) Baseline 17 ng/L (0-10)
[2024-11-09 10:27] LABS: Anion Gap 18.3 (5-19); Aspartate Amino Transferase 28 U/L (0-32); Potassium 4.3 mmol/L (3.5-5.1)
[2024-11-09 11:16] VITALS: BP 132/78; PULSE 64; O2SAT 96
--- NOTE | 2024-11-09 11:37 | ECG_ITS ---
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 Measurements Intervals [place] Rate: 64 P: 57 NC: 157 QRS: 58 QRSD: 91 T: 54 QT: 430 QTc: 444 Interpretive Statements SINUS RHYTHM LOW QRS VOLTAGE IN PRECORDIAL LEADS [QRS DEFLECTION < 1.0 mV IN CHEST LEADS] Compared to ECG 11/09/2024 09:30:55 No significant changes Electronically Signed On 11-14-2024 10:39:36 CDT by All Harris M.D. [email or web address]
[2024-11-09 12:03] LABS: Troponin 5 2HR 15.82 ng/L (0-10)
[2024-11-09 12:07] LABS: Troponin 5 2HR Delta -1.18 ABS# (0-10)
[2024-11-09 12:24] VITALS: BP 123/72; PULSE 61; RESP 18; O2SAT 94
[2024-11-09 12:51] VITALS: BP 128/71; PULSE 78; RESP 18; O2SAT 96
[2024-11-09 13:01] VITALS: BP 128/71; PULSE 88; O2SAT 100
--- NOTE | 2024-11-11 07:56 | DCPLANNER ---
faxed outpatient lexiscan order to scheduling
== END 2024-11-09 13:02 | disposition home or self-care (01) ==
PROVIDERS: Emergency Provider Family Medicine
DX: R07.9 Chest pain, unspecified (principal); F17.210 Nicotine dependence, cigarettes, uncomplicated
CPT/HCPCS: 36415; 71045; 80053; 84484; 85025; 93005; 99285; J9999